=== PATIENT | male | born 1945 | race Caucasian/White ===

== ENCOUNTER → 2017-09-07 | Outpatient (CLI) | payer MEDICARE | END | disposition home or self-care (01) | LOC: LABWHC1 09:23 | PROVIDERS: ATTEND Psychiatry & Neurology Neurology | DX: R25.1 Tremor, unspecified (principal) | CPT/HCPCS: 36415; 82565; 84520 ==

== ENCOUNTER → 2017-09-13 | Outpatient (CLI) | payer MEDICARE ==
--- NOTE | 2017-09-13 22:03 | MR ---
EXAMINATION TYPE: MR brain wo/w con DATE OF EXAM: 09/13/2017 COMPARISON: NONE HISTORY: 73-year-old male, brain tumor, tremors in hands TECHNIQUE: Multiplanar, multisequence images of the brain and brainstem were acquired before and aft er administration of 7.5 mL IV Gadavist. Diffusion weighted imaging is performed. FINDINGS: No evidence for acute infarction, hemorrhage, mass, mass effect, midline shift, herniation, effacemen t of basal cisterns, or extra-axial fluid collection. Mild to moderate bifrontal cerebral atrophy. 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 Secondary: Supple with vertical orientation of the lateral ventricles. T2/FLAIR weighted sequences show mild scattered burden of T2 bright white matter change in the subcor tical and deep white matter regions with foci numbering approximately 10-15 in the right cerebral hem isphere and approximately 10 in the left cerebral hemisphere. The left internal carotid artery flow void is absent. The craniocervical junction is normal. There is a tangle of vessels with a enhancement seen along the inferior medial right cerebellar hemis phere suggestive of a developmental venous anomaly. Post contrast images otherwise demonstrate no evidence of pathologic enhancement. Dural venous sinus es are patent. There is some trapped fluid in the right mastoid air cells. Some lobulated mucosal thickening along t he floors of the left greater than right maxillary sinuses. Globes are intact with prior cataract anuja bonny on the right. IMPRESSION: 1. Dysgenesis of the corpus callosum. Only a small portion of the genu and anterior body are present. Secondary colpocephaly. 2. Mild scattered burden of T2 bright white matter change likely relating to chronic small vessel isc hemic disease. 3. Absent left internal carotid artery flow void suggests a significant proximal stenosis within the neck versus occlusion. Consider CT angiography and correlating with patient's history to further eval uate. 4. Small developmental venous anomaly along the medial inferior right cerebellum. Otherwise, no abnor mal enhancement seen. 5. Some trapped fluid in the right mastoid air cells. Correlate for any mastoid pain to exclude masto iditis
== END | disposition home or self-care (01) ==
LOC: RADMRIMAIN 09:52
PROVIDERS: ATTEND Psychiatry & Neurology Neurology
DX: G93.89 Other specified disorders of brain (principal); R90.89 Other abnormal findings on diagnostic imaging of central nervous system; R93.0 Abnormal findings on diagnostic imaging of skull and head, not elsewhere classified
CPT/HCPCS: 70553; A9581

== ENCOUNTER → 2018-10-04 | Outpatient (CLI) | payer MEDICARE ==
--- NOTE | 2018-10-04 21:04 | CT ---
EXAMINATION TYPE: CT brain w con DATE OF EXAM: 10/04/2018 COMPARISON: MRI 09/13/2017 INDICATION: SHELTON and dizziness DLP: 1035.3 mGycm, Automated exposure control for dose reduction was used. CONTRAST: None CT of the brain is performed utilizing 3 mm thick sections through the posterior fossa and 3 mm thick sections through the remaining calvarium. Study is performed within 24 hours of arrival to the hosp [facility]. No abnormal hyperdensity is present to suggest an acute intracranial hemorrhage. No mass lesion is evident. No acute infarcts are evident. Ventricles and sulci are appropriate for the patient age. However, there is some prominence of the la teral ventricles and third ventricle. When compared to the MRI findings are compatible with the dysge nesis of the corpus callosum. Paranasal sinuses and mastoid air cells within the [id number] are clear. No abnormal enhancement is evident. IMPRESSIONS: 1. Acute intracranial process. 2. Dysgenesis of the corpus callosum as described on the MRI of 09/13/2017.
--- NOTE | 2018-10-05 07:22 | XR ---
EXAMINATION TYPE: XR chest 2V DATE OF EXAM: 10/04/2018 COMPARISON: NONE HISTORY: Shortness of breath TECHNIQUE: Frontal and lateral views of the chest are obtained. FINDINGS: Scattered senescent parenchymal changes noted. Hyperinflation compatible with COPD. No evidence for infiltrate. No evidence for atelectasis. Heart size is stable. Mediastinal structures are stable and grossly unremarkable. No evidence for hilar prominence. Degenerative changes dorsal spine. IMPRESSION: 1. No evidence for acute pulmonary disease.
== END | disposition home or self-care (01) ==
LOC: RADCTMAIN 16:18
PROVIDERS: ATTEND Family Medicine
DX: Q04.0 Congenital malformations of corpus callosum (principal); R09.89 Other specified symptoms and signs involving the circulatory and respiratory systems; Z01.812 Encounter for preprocedural laboratory examination
CPT/HCPCS: 82565; 84520; 71046; 70460; 36415; Q9967

== ENCOUNTER → 2021-06-11 | Outpatient (CLI) | payer MEDICARE ==
--- NOTE | 2021-06-11 15:14 | CT ---
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 TECHNIQUE: Contiguous axial scanning of the soft tissues of the neck and chest performed with IV Cont rast, patient injected with 80 mL of Isovue M300. Coronal/sagittal reconstructions performed. CT DLP: 752.2 mGycm Automated exposure control for dose reduction was used. FINDINGS: NECK: There is a high-grade stenosis or subtotal occlusion at the origin of the right vertebral artery. The re is reconstitution of the right vertebral artery at the V2 segment of the vessel is nondominant. There is a patent stent of the distal right common carotid artery and proximal right internal carotid artery. There is occlusion of the proximal left ICA. Visualized intracranial structures, orbits and globes, paranasal sinuses, mastoid air cells appear cl ear. Rightward nasal septal deviation. Nasal pharynx and oropharynx are clear. Epiglottis and prevertebral soft tissues are satisfactory. Glottic and subglottic structures as well as the upper tracheal column are clear. Some foci of air present within the right parotid gland which is slightly atrophic compared to the co ntralateral side. Additional foci of air within the right Stensen's duct. There is a single borderline sized 5 mm submental lymph node, axial image 44. No definite suspicious right neck mass or lymphadenopathy is identified. No priors are available for comparison purposes. Moderate distention of the degenerative change C4-T1 levels. CHEST: Median sternotomy wires are post-CABG changes. Heart normal size without pericardial effusion. Aorta normal caliber with conventional arch vessel branching anatomy and mild atherosclerotic arch ca lcifications. Trace bilateral gynecomastia. No thoracic lymphadenopathy by CT size criteria. Mild centrilobular emphysema. Tiny 3 mm subpleural pulmonary nodule anterior right upper lobe, axial image 20, questionable clinica l significance. 4 mm subpleural pulmonary nodule posterior right midlung, axial image 27. 5 mm subpleural pulmonary nodule posterior right lower lobe, axial image 37. A couple 4 mm pulmonary nodules periphery of the left lower lobe, axial image 47. Some strandy scarring or atelectasis anteromedial left mid lung. Otherwise, no consolidation or pleural effusion. Visualized upper abdomen shows cholecystectomy clips and mild to moderate atherosclerotic lesions in the abdominal aorta. Bones: Moderate to advanced degenerative disc disease mid to lower thoracic spine IMPRESSION: NECK: 1. STATUS POST RIGHT NECK DISSECTION. THERE IS A SOLITARY BORDERLINE SIZED 5 MM SUBMENTAL LYMPH NODE WHICH IS NONSPECIFIC BUT OTHERWISE, NO SUSPICIOUS LYMPHADENOPATHY OR MASS IDENTIFIED IN THE NECK. 2. PATENT RIGHT CAROTID ARTERY STENT. 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 3. INCIDENTAL FOCI OF AIR RIGHT PAROTID GLAND AND FOCI OF AIR WITHIN THE RIGHT STENSEN'S DUCT, PROBAB LY DUE TO PREVIOUS OSTIAL INSTRUMENTATION. CHEST: 4. COPD WITH MILD EMPHYSEMA. 5. A FEW SCATTERED 5 MM AND SMALLER PULMONARY NODULES ARE NONSPECIFIC. REASSESS IN 3 MONTHS TO ENSURE STABILITY.
== END | disposition home or self-care (01) ==
LOC: RADCTMAIN 11:58
PROVIDERS: ATTEND Internal Medicine Hematology & Oncology
DX: Z03.89 Encounter for observation for other suspected diseases and conditions ruled out (principal); C76.0 Malignant neoplasm of head, face and neck; J43.9 Emphysema, unspecified; R91.1 Solitary pulmonary nodule; I65.22 Occlusion and stenosis of left carotid artery
CPT/HCPCS: 82565; 84520; 70491; 71260; 36415; Q9967

== ENCOUNTER → 2021-12-10 | Outpatient (CLI) | payer MEDICARE ==
--- NOTE | 2021-12-10 21:56 | CT ---
EXAMINATION TYPE: CT chest wo con DATE OF EXAM: 12/10/2021 COMPARISON: 07-01 HISTORY: Solitary pulmonary nodule CT DLP: 318.90 mGycm, Automated exposure control for dose reduction was used. CONTRAST: Performed injected with 0 mL of Isovue 300. TECHNIQUE: Axial images were obtained at 5 mm thick sections. Reconstructed images are reviewed on [employer] computer in the coronal plane. FINDINGS: Portion of the thyroid visualized is normal. There is some minimal pleural thickening along the anterior lateral lingula measuring 1.3 cm. This jaramillo s significant improvement from comparison. There is a stable pleural-based 0.5 cm nodule, series 4 image 47 and 0.3 cm nodule is the same level present previously. Findings appear stable. No enlarged mediastinal or hilar adenopathy is evident. The ascending aorta diameter at the level o f the main pulmonary artery is 3.9 cm. The main pulmonary artery diameter at the bifurcation is 2.[address] sections are obtained through the upper abdomen. Abdomen is essentially unremarkable. IMPRESSIONS: 1. Small stable peripheral left lung base nodules. Follow-up exam in 3-6 months is recommended to con firm stability.
== END | disposition home or self-care (01) ==
LOC: RADCTMAIN 10:09
PROVIDERS: ATTEND Internal Medicine Hematology & Oncology
DX: R91.1 Solitary pulmonary nodule (principal)
CPT/HCPCS: 71250

== ENCOUNTER → 2023-07-07 | Outpatient (CLI) | payer MEDICARE ==
--- NOTE | 2023-07-07 13:43 | CT ---
EXAMINATION TYPE: CT chest wo con DATE OF EXAM: 07/07/2023 COMPARISON: 06/29/2022 HISTORY: 77-year-old male C61, R91.1, heart problems TECHNIQUE: Contiguous axial scanning of the chest without IV contrast. Coronal/sagittal reconstructio ns performed. CT DLP: 511mGycm. Automatic exposure control utilized for a dose reduction. FINDINGS: Changes of previous right neck dissection. Median sternotomy wires with post-CABG changes. Heart normal size without pericardial effusion. Aorta normal caliber with mild atherosclerotic arch calcifications and conventional arch vessel branc clemencia anatomy. No thoracic lymphadenopathy by CT size criteria. Trace bilateral gynecomastia. Minimal biapical pleural-parenchymal scarring. There is some chronic strandy subpleural scarring ante rior medial left midlung. Minimal emphysematous change. A few scattered 5 mm and smaller bilateral pulmonary nodules remain unchanged back to at least 023 suggesting a benign etiology. No consolidation or pleural effusion. Visualized upper abdomen shows cholecystectomy clips and a 1.4 cm left renal cyst. Moderate to advanced degenerative disc disease mid to lower thoracic and upper lumbar spine. IMPRESSION: 1. Previous median sternotomy with post-CABG changes. 2. COPD with minimal emphysema. 3. A few scattered 5 mm and smaller pulmonary nodules remain unchanged compatible with a benign etiol ogy.
== END | disposition home or self-care (01) ==
LOC: RADCTMAIN 11:42
PROVIDERS: ATTEND Internal Medicine Hematology & Oncology
DX: C61 Malignant neoplasm of prostate (principal); J43.9 Emphysema, unspecified; R91.1 Solitary pulmonary nodule; Z95.1 Presence of aortocoronary bypass graft; Z71.3 Dietary counseling and surveillance
CPT/HCPCS: 71250

== ENCOUNTER → 2024-07-06 | Outpatient (CLI) | payer MEDICARE ==
[2024-07-06 09:42] LABS: African American GFR (CKD) 66 (>60 ml/min/1.73 sqM); Blood Urea Nitrogen 24 mg/dL (9-20); Non-African American GFR(CKD) 57 (>60 ml/min/1.73 sqM)
--- NOTE | 2024-07-06 15:17 | CT ---
EXAMINATION TYPE: CT chest w con DATE OF EXAM: 07/06/2024 10:20 AM COMPARISON: None. CLINICAL INDICATION: Male, 78 years old with history of C44.[address]91[address] CH W, Lung nodule , hx squamous cell ca TECHNIQUE: Axial images were obtained at 5 mm thick sections. Reconstructed images are reviewed on [employer] computer in the coronal plane. Contrast used:80 mL of Isovue 300 with IV Contrast, (none if empty) Oral contrast used: (none if empty) CT DLP: 364.70 mGycm, Automated exposure control for dose reduction was used. FINDINGS: Portion of the thyroid visualized is normal. There is a 0.5 cm nodule peripheral left lung base. Series 3 image 47. This may be slightly larger th an comparison. There is a 0.5 cm nodule posterior right lung present previously. Series 3 image 34.Posterior lateral tiny nodules left lung base remains present. No enlarged mediastinal or hilar adenopathy is evident. The ascending aorta diameter at the level o f the main pulmonary artery is 3.6 cm. The main pulmonary artery diameter at the bifurcation is 2.[address] sections are obtained through the upper abdomen. Abdomen is essentially unremarkable. IMPRESSION: 1. No acute pulmonary process. 2. Stable small nodules bilateral lung castellanos. 3. There is a small 0.5 cm nodule which may be slightly more prominent than the comparison. Recommend follow-up exam in 6 months for reevaluation. [facility], , 07/06/2024 3:15 PM
== END | disposition home or self-care (01) ==
LOC: RADCTMAIN 08:49
PROVIDERS: ATTEND Internal Medicine Hematology & Oncology
DX: C44.329 Squamous cell carcinoma of skin of other parts of face (principal); C61 Malignant neoplasm of prostate; R91.8 Other nonspecific abnormal finding of lung field; Z71.3 Dietary counseling and surveillance
CPT/HCPCS: 82565; 84520; 71260; 36415; Q9967